=== PATIENT | female | born 1940 | race Caucasian/White ===

== ENCOUNTER 2020-10-17 12:46 | Observation (INO) | payer OTHER ==
[~2020-10-17] VITALS: Ht 160 cm; Wt 49.9 kg
[~2020-10-17 12:46] MED LIST: ANTIVERT 25MG T25 MG PO; ARICEPT10 MG PO; FOSAMAX 10 MG T10 MG PO; GLUCOPHAGE 500500 MG PO; HYDROCHLOROTHIA25 MG PO; KLOR-CON 1010 MEQ PO; LISINOPRIL10 MG PO; MELOXICAM7.5 MG PO; OMEPRAZOLE20 MG PO; PERCOCET 5/325 T1 EA PO; PRAVASTATIN SOD40 MG PO; SERTRALINE HCL100 MG PO
[2020-10-17 13:19] LABS: HEMOGLOBIN 12.3 gm/dl (12.3-15.3); RED BLOOD COUNT 3.92 M/UL (4.00-5.10)
[2020-10-17] MEDS ORDERED: RISPERIDONE0.5 MG PO (16:49)
--- NOTE | 2020-10-17 20:39 | NUR ---
Report called to [facility]th floor at this time
[2020-10-17] MEDS ORDERED: CLARITIN10 MG PO (22:44)
--- NOTE | 2020-10-18 01:41 | NUR ---
lab called to report the 3rd troponin for pt critical troponin at 1.44. Called Dr. Tijerina. Since the pt was admitted by Dr. Gould last evening, I explained that the 1st troponin was 0.51 2nd troponin was 1.35 and at 0124 the 3rd troponin was 1.44. I also explained that per Dr. Gould's H&P the family has chose to not pursue further cardiac workups. Dr. Tijerina said, the pt wasn't his and he didn't know anything about her, and if the family didn't want anything done, there was not need for me to call him and hung up. I considered calling to enlighten him of the hospital policy that I am to call and report critical labs to the hospitalist television writer, but I didn't since I know he already knows the policy. I will continue to monitor my pt and report what is necessary for good pt treatment and outcomes.
--- NOTE | 2020-10-18 11:41 | NUR ---
REPORTED TO DR. DAWKINS OF PATIENT EPISODES OF BRADYCARDIA TELEMETRY NOTIFIED ME. INFORMED DR. DAWKINS OF THE ABNORMAL LABS AND HE ACKNOWLEDGED. INFORMED HIM OF DAUGHTER WOULD LIKE TO SPEAK TO HIM AND HE STATED HE WILL COME AND SEE THE PATIENT. INFORMED THE DAUGHTER OF DR. DAWKINS WILL COME AND TALKED TO HER.
--- NOTE | 2020-10-18 19:26 | NUR ---
1800 patient with no sitter, increasingly confused and requires sitter. pharmaceutical engineer helped and evening nurse assisted. patient on double bed alarm. informed housekeeping room attendant kostas of the need of sitter.
[2020-10-19 03:39] LABS: HEMOGLOBIN 11.1 gm/dl (12.3-15.3); RED BLOOD COUNT 3.59 M/UL (4.00-5.10); WHITE BLOOD COUNT 4.7 K/UL (4.5-11.0)
[2020-10-19 04:24] LABS: BUN/CREATININE RATIO 19 (0-10)
[2020-10-20 08:09] LABS: HEMOGLOBIN 12.2 gm/dl (12.3-15.3); RED BLOOD COUNT 4.01 M/UL (4.00-5.10); WHITE BLOOD COUNT 4.9 K/UL (4.5-11.0)
[2020-10-20] MEDS ORDERED: ASPIRIN EC81 MG PO (10:59)
[2020-10-20] MEDS ORDERED: LOPRESSOR 25 MG25 MG PO (10:59)
[2020-10-20] MEDS ORDERED: AUGMENTIN 875-1 EACH PO (10:59)
[2020-10-20] MEDS ORDERED: ATORVASTATIN CA10 MG PO (10:59)
[2020-10-20] MEDS ORDERED: QUETIAPINE FUMA25 MG PO (10:59)
[2020-10-20] MEDS ORDERED: ZESTRIL5 MG PO (14:26)
== END 2020-10-20 14:34 | disposition home or self-care (01) ==
LOC: ER1 12:46 → M/S 15:52 → CDU 15:52 → M/S 15:52 → MED SURG 4 18:54 → M/S 20:44
PROVIDERS: Internal Medicine; Physician Assistant; ADMIT Internal Medicine
DX: G93.41 Metabolic encephalopathy (principal); F03.90 Unspecified dementia, unspecified severity, without behavioral disturbance, psychotic disturbance, mood disturbance, and anxiety; I21.4 Non-ST elevation (NSTEMI) myocardial infarction; R77.8 Other specified abnormalities of plasma proteins; R45.1 Restlessness and agitation; E87.6 Hypokalemia; R00.1 Bradycardia, unspecified; I10 Essential (primary) hypertension; R94.6 Abnormal results of thyroid function studies; R50.9 Fever, unspecified; Z66 Do not resuscitate; Z20.822 Contact with and (suspected) exposure to COVID-19
CPT/HCPCS: 36415; 70450; 71045; 80048; 80053; 81001; 82550; 82553; 83605; 83874; 84439; 84443; 84484; 85025; 87040; 87086; 93005; 96374; 96375; 96376; 99285; G0378; J0696; J2060; U0002

== ENCOUNTER 2020-10-21 10:37 | Inpatient (IN) | payer OTHER ==
[~2020-10-21] VITALS: Ht 160 cm; Wt 49.9 kg
[~2020-10-21 10:37] MED LIST changes: +ASPIRIN EC81 MG PO; +ATORVASTATIN CA10 MG PO; +AUGMENTIN 875-1 EACH PO; +CLARITIN10 MG PO; +LOPRESSOR 25 MG25 MG PO; +QUETIAPINE FUMA25 MG PO; +RISPERIDONE0.5 MG PO; +ZESTRIL5 MG PO
[2020-10-21 11:51] LABS: HEMOGLOBIN 15.4 gm/dl (12.3-15.3); RED BLOOD COUNT 4.8 M/UL (4.00-5.10); WHITE BLOOD COUNT 9.9 K/UL (4.5-11.0)
[2020-10-21 12:18] LABS: BUN/CREATININE RATIO 19 (0-10)
[2020-10-22 03:15] LABS: HEMOGLOBIN 12.5 gm/dl (12.3-15.3); RED BLOOD COUNT 4.02 M/UL (4.00-5.10); WHITE BLOOD COUNT 5.7 K/UL (4.5-11.0)
[2020-10-23 06:13] LABS: HEMOGLOBIN 12.1 gm/dl (12.3-15.3); RED BLOOD COUNT 3.95 M/UL (4.00-5.10); WHITE BLOOD COUNT 6.6 K/UL (4.5-11.0)
[2020-10-23 06:27] LABS: BUN/CREATININE RATIO 28 (0-10)
[2020-10-24 09:51] LABS: HEMOGLOBIN 11.9 gm/dl (12.3-15.3); RED BLOOD COUNT 3.77 M/UL (4.00-5.10)
[2020-10-24 10:14] LABS: BUN/CREATININE RATIO 38 (0-10)
[2020-10-26 03:17] LABS: HEMOGLOBIN 9.5 gm/dl (12.3-15.3); RED BLOOD COUNT 3.01 M/UL (4.00-5.10); WHITE BLOOD COUNT 3.8 K/UL (4.5-11.0)
[2020-10-26 03:56] LABS: BUN/CREATININE RATIO 26 (0-10)
[2020-10-28 04:47] LABS: HEMOGLOBIN 8.7 gm/dl (12.3-15.3); RED BLOOD COUNT 2.82 M/UL (4.00-5.10); WHITE BLOOD COUNT 3.9 K/UL (4.5-11.0)
[2020-10-28 05:00] LABS: BUN/CREATININE RATIO 16 (0-10)
[2020-10-31] MEDS ORDERED: LISINOPRIL10 MG PO (09:03)
[2020-10-31] MEDS ORDERED: PERCOCET 5/325 T1 EA PO (09:04)
== END 2020-10-31 14:21 | DRG 521 ==
LOC: ER1 10:37 → M/S 12:46 → CDU 12:46 → M/S 17:00
PROVIDERS: Emergency Medicine; Internal Medicine Infectious Disease; Orthopaedic Surgery; Physician Assistant; ADMIT Internal Medicine
PROC: 0SRB0JA Replacement of Left Hip Joint with Synthetic Substitute, Uncemented, Open Approach (ICD-10-PCS; principal; 2020-10-23 12:45)
DX: S72.002A Fracture of unspecified part of neck of left femur, initial encounter for closed fracture (principal); I21.4 Non-ST elevation (NSTEMI) myocardial infarction; D62 Acute posthemorrhagic anemia; Z20.822 Contact with and (suspected) exposure to COVID-19; F03.90 Unspecified dementia, unspecified severity, without behavioral disturbance, psychotic disturbance, mood disturbance, and anxiety; W18.30XA Fall on same level, unspecified, initial encounter; Z66 Do not resuscitate; R29.6 Repeated falls; E11.9 Type 2 diabetes mellitus without complications; E78.5 Hyperlipidemia, unspecified; I25.2 Old myocardial infarction; Z79.82 Long term (current) use of aspirin; Z87.01 Personal history of pneumonia (recurrent); Z79.4 Long term (current) use of insulin
CPT/HCPCS: 36415; 70450; 71045; 72125; 72170; 73502; 73700; 76000; 80048; 80053; 82550; 82553; 84484; 85018; 85025; 85027; 85610; 85730; 93005; 94760; 96374; 96375; 97110; 97110-GP-CQ; 97163; 97167; 97530; 97530-GP-CQ; 99285; C1776; J0171; J0690; J0735; J1100; J1650; J1885; J2001; J2270; J2274; J2405; J2704; J2710; J2795; J3010; J3370; J7030; J7050; J7120; U0002

== ENCOUNTER 2021-05-14 05:47 | Emergency (ER) | payer OTHER ==
[~2021-05-14] VITALS: Ht 154.9 cm; Wt 49.9 kg
== END 2021-05-14 09:47 | disposition home or self-care (01) ==
LOC: ER1 05:47
DX: S00.83XA Contusion of other part of head, initial encounter (principal); F03.91 Unspecified dementia, unspecified severity, with behavioral disturbance; W19.XXXA Unspecified fall, initial encounter; Y92.129 Unspecified place in nursing home as the place of occurrence of the external cause
CPT/HCPCS: 70450; 72125; 96372; 99283; J3486

== ENCOUNTER 2021-07-12 19:26 | Emergency (ER) | payer OTHER ==
[2021-07-12 21:02] LABS: RED BLOOD COUNT 4.14 M/UL (4.00-5.10); WHITE BLOOD COUNT 3.6 K/UL (4.5-11.0)
[2021-07-12 21:33] LABS: BUN/CREATININE RATIO 29 (0-10)
[2021-07-12] MEDS ORDERED: KEFLEX CAP 250250 MG PO (22:59)
== END 2021-07-13 01:04 | disposition home or self-care (01) ==
LOC: ER1 19:26
PROVIDERS: Family Medicine
DX: N39.0 Urinary tract infection, site not specified (principal); R33.9 Retention of urine, unspecified; Z96.649 Presence of unspecified artificial hip joint
CPT/HCPCS: 51701; 80053; 81001; 85025; 96374; 96375; 99284; J0690; J2060